=== PATIENT | male | born 1985 | race Caucasian/White ===

== ENCOUNTER 2020-09-12 15:50 | Emergency (ER) | payer OTHER ==
[~2020-09-12 15:50] MED LIST: BUPRENORPHIN-N1 EACH SL; IBUPROFEN600 MG PO
[2020-09-12 16:49] LABS: HEMOGLOBIN 16.2 gm/dl (14.0-17.5); RED BLOOD COUNT 5.74 M/UL (4.20-5.50); WHITE BLOOD COUNT 14.2 K/UL (4.5-11.0)
== END 2020-09-12 18:07 | disposition home or self-care (01) ==
LOC: ER1 15:50
PROVIDERS: Physician Assistant
DX: T67.5XXA Heat exhaustion, unspecified, initial encounter (principal); N17.9 Acute kidney failure, unspecified; F17.210 Nicotine dependence, cigarettes, uncomplicated; X30.XXXA Exposure to excessive natural heat, initial encounter
CPT/HCPCS: 80053; 82550; 83874; 85025; 93005; 96374; 99283; J2405